=== PATIENT | female | born 1985 | race Caucasian/White ===

== ENCOUNTER 2017-06-26 12:17 | Emergency (ER) | payer MEDICAID, OTHER ==
[2017-06-26 12:17] VITALS: BMI 21.6
[2017-06-26 12:40] VITALS: RESP 18
--- NOTE | 2017-06-26 13:18 | ED PDOC ---
Arrival/HPI - General Chief Complaint: Flu-like Symptoms Time Seen by Provider: 06/26/17 12:55 Historian: Patient - History of Present Illness Narrative History of Present Illness (Text): 06/26/17 13:15 Patient is a 31 yo female with past medical history of hyperthyroidism, presents to the Emergency Department complaining of chills, nausea, mild headache for past 2 days. Denies cough or sore throat. Currently denies palpitations. Denies heat or cold intolerance. Denies chest pain or pleuritic discomfort of shortness of breath. Denies abdominal pain. Denies constipation or diarrhea. Time/Duration: Prior to Arrival Symptom Onset: Gradual Past Medical History - Cardiac Hx Cardiac Disorders: No - Pulmonary Hx Respiratory Disorders: No - Neurological Hx Neurological Disorder: No - HEENT Hx HEENT Disorder: No - Renal Hx Renal Disorder: No - Endocrine/Metabolic Hx Hyperthyroidism: Yes - Hematological/Oncological Hx Blood Disorders: No - Integumentary Hx Dermatological Disorder: No - Musculoskeletal/Rheumatological Hx Musculoskeletal Disorders: No - Gastrointestinal Hx Gastrointestinal Disorders: No - Genitourinary/Gynecological Hx Genitourinary Disorders: No - Psychiatric Hx Psychophysiologic Disorder: No Hx Substance Use: No - Surgical History Hx Section: Yes - Suicidal Assessment Feels Threatened In Home Enviroment: No Family/Social History Family/Social History: Unknown Family HX Smoking Status: Never Smoked Hx Alcohol Use: No Hx Substance Use: No Allergies/Home Meds Allergies/Adverse Reactions: Allergies No Known Allergies Allergy (Verified 06/26/17 12:39) Review of Systems - Review of Systems Constitutional: Fatigue, Other (chills) Eyes: absent: Vision Changes, Eye Pain ENT: absent: Hearing Changes Respiratory: absent: SOB, Cough Cardiovascular: absent: Chest Pain, Palpitations Gastrointestinal: Nausea. absent: Abdominal Pain, Constipation, Diarrhea, Vomiting, Appetite Changes, Hematochezia, Hematemesis Genitourinary Female: absent: Hematuria, Urine Output Changes, Vaginal Bleeding Musculoskeletal: absent: Back Pain, Neck Pain Skin: absent: Rash Neurological: absent: Headache, Dizziness, Focal Weakness Endocrine: absent: Polyuria Hemo/Lymphatic: absent: Easy Bleeding Psychiatric: absent: Depression, Suicidal Ideation Physical Exam Vital Signs Reviewed: Yes Vital Signs Temp Pulse Resp BP Pulse Ox 06/26/17 16:05 82 18 118/75 100 06/26/17 15:55 98.1 F 06/26/17 15:24 86 18 116/73 98 06/26/17 13:24 94 H 18 118/74 98 06/26/17 12:40 97.7 F 102 H 18 121/87 98 06/26/17 12:39 97.7 F 102 H 18 121/87 98 Temperature: Afebrile Appearance: Positive for: Well-Appearing, Non-Toxic Pain Distress: None - Systems Exam Head: Present: Atraumatic, Normocephalic Pupils: Present: PERRL Extroacular Muscles: Present: EOMI Mouth: Present: Moist Mucous Membranes Pharnyx: No: ERYTHEMA Nose (Internal): Present: Other (no erythema or tenderness of soft tissue) Neck: Present: Normal Range of Motion. No: Meningeal Signs Respiratory/Chest: Present: Clear to Auscultation. No: Respiratory Distress Cardiovascular: Present: Regular Rate and Rhythm Abdomen: Present: Normal Bowel Sounds. No: Tenderness, Distention, Peritoneal Signs Back: No: CVA Tenderness Upper Extremity: No: Cyanosis Lower Extremity: No: Edema Neurological: Present: Motor Func Grossly Intact, Normal Sensory Function Skin: Present: Warm Psychiatric: Present: Alert, Normal Insight Medical Decision Making ED Course and Treatment: 06/26/17 15:57 Patient not tachycardic with serial exams in the ED. No diarrhea. Not proptotic. Denies chest pain or sob. Current exam not consistent with thyroid emergency, reviewed, tsh, t4 with Dr. Sarah Seymour. She is currently afebrile with no meningeal signs or tachyarrhythmias Labs reviewed with inserting machine operator, she will be told to continue her Propanolol and Tapazol. As she is comfortable and in no acute distress, nontoxic appearing with follow-up, patient to be discharged. There are recent sick contacts, will d/c with Tamiflu and advised f/u with Dr. Seymour and PMD. 06/26/17 22:16 - Lab Interpretations Lab Results: 06/26/17 13:20 06/26/17 13:20 Lab Results 06/26/17 13:20: Urine Color Yellow, Urine Appearance Clear, Urine pH 6.0, Ur Specific [place] >= 1.030, Urine Protein Negative, Urine Glucose (UA) Negative, Urine Ketones 40 H, Urine Blood Negative, Urine Nitrate Negative, Urine Bilirubin Small H, Urine Urobilinogen 0.2, Ur Leukocyte Esterase Negative, Urine HCG, Qual Negative 06/26/17 13:20: Influenza Typ A,B (EIA) Negative for flu a/b 06/26/17 13:20: Free T4 3.33 H, Thyroxine (T4) 19.2 H, TSH 3rd Generation < 0.02 L 06/26/17 13:20: Sodium 138, Potassium 4.1, Chloride 102, Carbon Dioxide 23, Anion Gap 18, BUN 14, Creatinine 0.4 L, Est GFR ( Amer) > 60, Est GFR ( Non-Af Amer) > 60, Random Glucose 103, Calcium 10.4, Total Bilirubin 0.7, AST 28 , ALT 60 H, Alkaline Phosphatase 129 H, Lactate Dehydrogenase 418, Total Creatine Kinase 35, Troponin I < 0.01, Total Protein 7.4, Albumin 4.4, Globulin 3.1, Albumin/Globulin Ratio 1.4 06/26/17 13:20: WBC 5.3 D, RBC 4.45, Hgb 13.5, Hct 39.1, MCV 87.9, MCH 30.3, MCHC 34.5, RDW 11.6, Plt Count 335, MPV 9.6, Gran % 44.3 L, Lymph % (Auto) 44.5 H, [place] % (Auto) 6.8 H, Eos % (Auto) 2.5, Baso % (Auto) 1.9, Gran # 2.35, Lymph # (Auto) 2.4, [place] # (Auto) 0.4, Eos # (Auto) 0.1, Baso # (Auto) 0.10 06/26/17 13:18: POC Glucose (mg/dL) 97 06/26/17 13:05: PT 11.6, INR 1.02, APTT 35.4 - EKG Interpretation EKG Interpretation (Text): EKG at 13:22 normal sinus rhythm rate of [address] elevations Interpreted by ED Physician: Yes Type: 12 lead EKG Disposition/Present on Arrival - Present on Arrival Any Indicators Present on Arrival: No History of DVT/PE: No History of Uncontrolled Diabetes: No Urinary Catheter: No History of Decub. Ulcer: No History Surgical Site Infection Following: None - Disposition Have Diagnosis and Disposition been Completed?: Yes Diagnosis: Viral illness, Hyperthyroidism Disposition: HOME/ ROUTINE Disposition Time: 15:59 Patient Plan: Discharge Condition: GOOD Discharge Instructions (ExitCare): Hyperthyroidism (ED), Viral Syndrome (ED) Additional Instructions: Continue your current thyroid medication. For any headaches, any chest pain or shortness of breath, any dizziness or palpitations, any nausea or vomiting, any unsteadiness or shakiness, any abdominal pain, any visual symptoms, any persistent or worsening of symptoms, get rechecked. Follow-up with Dr. Mckayla Seymour in 1-2 days. Prescriptions: Oseltamivir Phosphate [Tamiflu] 75 mg PO BID #10 capsule Referrals: Curt Hameed MD [Primary Care Provider] - Follow up with primary Cam,Sarah Diaz MD [Medical Doctor] - Follow up with primary Forms: [email or web address] (Lithuanian)
[2017-06-26 13:34] LABS: URINE BILIRUBIN SMALL (NEGATIVE); URINE BLOOD NEGATIVE (NEGATIVE); URINE GLUCOSE (UA) NEGATIVE (NEGATIVE); URINE LEUKOCYTE ESTERASE NEGATIVE Leu/uL (NEGATIVE); URINE NITRATE NEGATIVE (NEGATIVE); URINE PROTEIN NEGATIVE mg/dL (<30 mg/dL); URINE UROBILINOGEN 0.2 E.U./dL (<1 E.U./dL)
[2017-06-26 13:38] LABS: BASO # 0.1 K/mm3 (0.0-2.0); BASO % 1.9 % (0.0-3.0); EOS # 0.1 (0.0-0.7); EOS % 2.5 % (1.5-5.0); GRAN # 2.35 (1.4-6.5); GRAN % 44.3 % (50.0-68.0); HCG,QUALITATIVE URINE NEGATIVE (NEGATIVE); HEMOGLOBIN 13.5 g/dL (12.0-16.0); LYMPH # 2.4 (1.2-3.4); LYMPH % 44.5 % (22.0-35.0); MEAN CELL VOLUME 87.9 fl (80.0-105.0); MEAN CORPUSCULAR HEMOGLOBIN 30.3 pg (25.0-35.0); MEAN CORPUSCULAR HGB CONC 34.5 g/dl (31.0-37.0); MEAN PLATELET VOLUME 9.6 fl (7.0-11.0); MONO # 0.4 (0.1-0.6); MONO % 6.8 % (1.0-6.0); RBC 4.45 10^6/uL (3.5-6.1); RED CELL DISTRIBUTION WIDTH 11.6 % (11.5-14.5); URINE APPEARANCE CLEAR (CLEAR); URINE COLOR YELLOW (YELLOW); WHITE BLOOD COUNT 5.3 10^3/ul (4.5-11.0)
[2017-06-26 13:40] LABS: ALB/GLOB RATIO 1.4 (1.1-1.8); ALBUMIN 4.4 g/dL (3.0-4.8); ALT/SGPT 60 U/L (7-56); AST/SGOT 28 U/L (14-36); BLOOD UREA NITROGEN 14 mg/dL (7-21); CALCIUM 10.4 mg/dL (8.4-10.5); GFR AFRICAN-AMERICAN > 60; GFR NON-AFRICAN AMERICAN > 60
[2017-06-26 13:50] LABS: TROPONIN I < 0.01 ng/mL
[2017-06-26 14:39] LABS: FREE T4 3.33 ng/dL (0.78-2.19); T4 19.2 ug/dL (5.5-11.0)
--- NOTE | 2017-06-26 15:53 | CARD ---
APPROVED REPORT EKG Measurement Heart [id number] <Conclusion> Normal sinus rhythm Possible Left atrial enlargement Borderline ECG
[2017-06-26 15:56] VITALS: TEMP 98.1
[2017-06-26 16:07] VITALS: BP 118/75; PULSE 82; O2SAT 100
[2017-06-26 16:07] LABS: INR 1.02 (0.93-1.08); PARTIAL THROMBOPLASTIN TIME 35.4 Seconds (25.1-36.5); PROTHROMBIN TIME 11.6 SECONDS (9.4-12.5)
== END 2017-06-26 16:12 | disposition home or self-care (01) ==
LOC: ED 12:17
DX: B34.9 Viral infection, unspecified (principal); E05.90 Thyrotoxicosis, unspecified without thyrotoxic crisis or storm